=== PATIENT | female | born 1955 | race Caucasian/White ===

== ENCOUNTER 2024-02-27 15:20 | Emergency (ER) | payer OTHER, SELFPAY ==
[2024-02-27 15:28] VITALS: BP 161/103; BMI 37.8
[2024-02-27 15:55] LABS: % Basophils 0.5 % (0-2); % Eosinophils 0.8 % (0-6); % Immature Granulocytes 0.3 % (0-0.5); % Lymphocytes 17.5 % (20.5-51.1); % Monocytes 7.8 % (1.7-9.3); % Neutrophils 73.1 % (42.2-75.2); Absolute Eosinophils 0.1 10^3/uL (0-0.7); Absolute Lymphocytes 1.3 10^3/uL (1.2-3.4); Absolute Monocytes 0.6 10^3/uL (0.1-0.6); Absolute Neutrophils 5.4 10^3/uL (1.4-6.5); Mean Corp Hgb Conc. 34.1 g/dL (33.0-37.0); Mean Corpuscular Hgb 31.4 pg (27.0-31.0); Mean Corpuscular Volume 92.2 fL (81.0-99.0); Mean Platelet Volume 10.6 fL (7.4-10.4); Nucleated Red Blood Cells % 0 %; Platelet Count 250 10^3/uL (130-400); Red Blood Cell Count 4.77 10^6/uL (4.20-5.40); Red Cell Dist. Width 11.8 % (11.5-14.5); White Blood Cell Count 7.4 10^3/uL (4.8-10.8)
[2024-02-27 16:11] LABS: ALT (SGPT) 18 U/L (0-35); AST (SGOT) 26 U/L (14-36); Albumin 4.7 g/dl (3.5-5.0); Alkaline Phosphatase 90 U/L (38-126); Blood Urea Nitrogen 14 mg/dl (7-17); Calcium 9.6 mg/dl (8.4-10.2); Carbon Dioxide 24 mmol/L (22-30); Chloride 107 mmol/L (98-107); Estimated Creatinine Clearance 70 ml/min; Glucose 107 mg/dl (70-99); Potassium 4.2 mmol/L (3.5-5.1); Sodium 140 mmol/L (135-145); Total Bilirubin 0.7 mg/dl (0.2-1.3); Total Protein 7.2 g/dl (6.3-8.2); eGFR > 60.00
[2024-02-27 16:13] LABS: Troponin I < 0.012 ng/ml
[2024-02-27 19:17] VITALS: BP 134/97
[2024-02-27 19:36] LABS: COVID-19 Antigen Negative (Negative)
[2024-02-27 20:09] VITALS: BP 131/75
[2024-02-27 20:48] LABS: D-Dimer 2.19 ug/mlFEU (0.00-0.50)
--- NOTE | 2024-02-27 22:09 | ED.GENMED ---
History of Present Illness
General
Chief Complaint: Dizziness
Source: patient and spouse
Exam Limitations: none
Time Seen by Provider: 02/27/24 19:25
Nursing documentation reviewed up to this point in time: agreed with
History of Present Illness
History of Present Illness:
68 yo female with history of fibromyalgia, chronic fatigue and severe anxiety presents for shortness of breath. States for the past 3 days she has been lightheaded off and on and short of breath that comes and goes. She states she is short of
breath even at rest sometimes. She admits that she has various aches and pains all over her body due to her fibromyalgia but a new pain was in her right lower leg last night all night long.
Denies fever or chills. Denies abdominal pain.
She went to urgent care earlier today had a negative chest x-ray, also had an unremarkable EKG, the urgent care report has been scanned into this chart.
It was reported that 1 time her pulse ox was 93% so they sent her here for evaluation
Past History
Past History
ED Past Medical History: Fibromyalgia, Hypothyroidism, Psychiatric (depression/anxiety) and Other (chronic fatigue)
ED Past Surgical History: Appendectomy, Cholecystectomy, and Orthopedic
Social History
Tobacco: Non-smoker
Alcohol: None
Personal:
Living: with family
Review of Systems
Review of Systems
Allergies reviewed?: Yes
All Other Systems: ROS reviewed and negative except as documented in HPI and ROS
Constitutional: Denies fever
Respiratory: Reports trouble breathing; Denies cough or hemoptysis
Cardiac: Denies chest pain, diaphoresis, palpitations or syncope
ABD/GI: Denies abdominal pain or nausea
Musculoskeletal: Reports no symptoms
Skin: Reports no symptoms
Neurological: Reports other (intermittent lightheadedness); Denies dizzy, headache, weakness or numbness
Phy Exam
Physical Exam
Physical Exam:
GENERAL: No acute distress. A&Ox3.
CONSTITUTIONAL: Afebrile.
EYES: Clear, conjunctivae normal
ENMT: moist mucus membranes, Pharynx nl
RESPIRATORY: Regular respirations, nonlabored, lungs clear. Pulse ox 98% RA
CARDIOVASCULAR: Regular rate and rhythm, no murmurs, no rubs.
GI: Soft, nontender, normal BS
MUSCULOSKELETAL: Moves with ease. Well perfused. No edema
SKIN: Warm, dry, pink
PSYCH: Anxious mood and affect. Well kept, interactive and appropriate
NEUROLOGIC: Awake, alert and oriented. No focal neurological deficits
Course
Orders/Labs/Results
Orders:
Orders
02/27/24 15:32
Electrocardiogram (*1) Urgent
Reason for Study: Chest Pain
EKG- Treatment ONCE
02/27/24 15:45
Complete Blood Count/With Diff Urgent
Comprehensive Metabolic Panel Urgent
Troponin I Urgent
02/27/24 19:16
COVID-19 Antigen Urgent
Source: Nasal Swab
02/27/24 19:58
US Periph Venous LOWER Ext RT Urgent
Comment:
Reason For Exam: R calf pain, SOB
02/27/24 20:10
D-Dimer Urgent
Protime/PTT Urgent
Comment: ADD ON
02/27/24 21:22
CT Chest Pe Study Urgent
Comment:
Reason For Exam: SOB elevated dimer
02/27/24 22:36
Add On- LAB Urgent
Tests Added?: PT/PTT
02/27/24 23:11
Apixaban [Eliquis] 10 mg PO NOW STA
Abnormal Lab Results
02/27/24 02/27/24
15:45 20:10
MCH 31.4 H pg
(27.0-31.0)
MPV 10.6 H fL
(7.4-10.4)
Lymphocytes % 17.5 L %
(20.5-51.1)
D-Dimer 2.19 H ug/mlFEU
(0.00-0.50)
Glucose 107 H mg/dl
(70-99)
02/27/24 15:45
02/27/24 15:45
Vital Signs
Initial and Last Documented VS:
Initial Vital Signs
Temp Pulse Resp BP Pulse Ox
98.9 F 94 16 161/103 96
02/27/24 15:28 02/27/24 15:28 02/27/24 15:28 02/27/24 15:28 02/27/24 15:28
Last Documented Vital Signs
Temp Pulse Resp BP Pulse Ox
98.9 F 85 16 107/91 98
02/27/24 15:28 02/27/24 23:31 02/27/24 15:28 02/27/24 23:31 02/27/24 23:31
MDM/Problems Addressed
Differential Diagnosis Includes:
PE, CHF, CA, PNA
MDM/Problems Addressed:
68 yo female with history of fibromyalgia, chronic fatigue and severe anxiety presents for shortness of breath. States for the past 3 days she has been lightheaded off and on and short of breath that comes and goes. She states she is short of
breath even at rest sometimes. She admits that she has various aches and pains all over her body due to her fibromyalgia but a new pain was in her right lower leg last night all night long.
Denies fever or chills. Denies abdominal pain.
She went to urgent care earlier today had a negative chest x-ray, also had an unremarkable EKG (the urgent care report has been scanned into this chart).
It was reported that 1 time her pulse ox was 93% so they sent her here for evaluation
CBC, CMP with no clinically significant abnormality
Ultrasound right lower extremity negative for DVT
8:45 PM
D-dimer elevated at 2.19
10:25 PM:
PE study:
X-ray radiologist report: Minor pulmonary embolism burden. Small nonocclusive pulmonary embolism in the right lower lobe lateral proximal segmental pulmonary artery. In the left lower lobe, there is subtle respiratory motion degradation, though
suggestion of possible filling defect in the posterior basal proximal segmental pulmonary artery.
No definite evidence to suggest significant right ventricular heart strain.
Mild atelectasis. No pneumonia.
10:40 PM:
There has been no hypoxemia. Pulse ox maintained at 97% while patient ambulated the entire length of the hallway up and down, no lightheadedness or dizziness
Pt is comfortable going home on Eliquis. She will see her PCP in 2 days if available, otherwise, next week
Case discussed with Dr. Bender who agrees pt can be discharged home on anticoagulation.
Pt ambulated out with normal gait at discharge
*Critical Care Note
Total Time (30-74mins, 75-104mins- exclusive of procedures): Not Applicable
ED Attending Note
-
Portions of this chart may have been created with voice recognition software.� Occasional wrong word or��sound alike� substitutions may have occurred due to the inherent limitations of voice recognition software.
Discharge Plan
Departure
Patient Disposition: Home (Routine Discharge)
Patient with high blood pressure during this ER visit?: No
Condition: Good
Discharge Problem:
Pulmonary embolism
Instructions: Pulmonary embolism (blood clot in the lung)
Prescriptions:
New
apixaban 5 mg tablet
5 mg PO BID Qty: 70 0RF
Rx Instructions:
Si mg BID for 7 days then 5 mg BID until further instructed
No Action
primidone 50 mg tablet
100 mg PO HS
lorazepam 0.5 mg tablet
0.5 mg PO QIDPRN PRN (Reason: anxiety)
Patient Comments:
02/27/2024: last filled 02/04/24, 120 tabs for 30 days from [facility]
furosemide 20 mg tablet
20 mg PO MOWEFR
pregabalin 50 mg capsule
150 mg PO HS
Patient Comments:
02/27/2024: last filled 02/19/24, 90 tabs for 30 days from [facility]
melatonin 10 mg Tablet
10 mg PO HS
Trintellix 20 mg tablet
20 mg PO DAILY
Referrals:
Salas Lawson MD [Family Provider] - Follow up in 5-7 days
Activity Restrictions/Additional Instructions:
As we discussed, you have a small clot in the right lower lung. I sent a prescription to your pharmacy for the blood thinner Eliquis (apixaban). If your insurance does not cover it, use the $10 co-pay coupon I gave you
Call your primary doctor's office tomorrow make an appointment for next week. Take copy of all reports with you.
Please discuss the fact that you are on primidone and Eliquis as you may need closer monitoring.
Return here immediately for worsening shortness of breath, chest pain, feeling sicker in any way.
Interventions
Interventions:
*Risk Screen - Suicide Last Done: 02/27/24 15:28
*General Assessment Last Done: 02/27/24 23:31
*Neglect/Abuse Screening Last Done: 02/27/24 15:28
ED- Fall Risk Assessment Last Done: 02/27/24 15:28
*Nursing Disposition Last Done: 02/27/24 23:31
ED- Neurological Assessment Last Done: 02/27/24 19:20
ED- Cardiac Assessment Last Done: 02/27/24 23:33
ED Swallowing Screen Last Done: 02/27/24 19:20
Discharge Date and Time
Discharge Date/Time: 02/27/24 23:34
Print Language: [id number]
[2024-02-27 22:20] VITALS: BP 95/72
[2024-02-27 22:44] VITALS: BP 107/91
[2024-02-27 22:46] LABS: INR 0.98
[2024-02-27 22:47] LABS: APTT 30.5 Sec (23.4-35.0)
[2024-02-27] MEDS: ELIQUIS 10 MG PO (23:26)
[2024-02-27 23:31] VITALS: BP 107/91
== END 2024-02-27 23:34 | disposition home or self-care (01) ==
LOC: EMR 15:20
PROVIDERS: Registered Nurse; EMERGENCY PHYSICIAN Emergency Medicine; FAMILY PHYSICIAN Internal Medicine Geriatric Medicine
DX: I26.99 Other pulmonary embolism without acute cor pulmonale (principal); R42 Dizziness and giddiness; M79.604 Pain in right leg; R06.02 Shortness of breath; Z11.52 Encounter for screening for COVID-19; M79.7 Fibromyalgia; F41.9 Anxiety disorder, unspecified; R53.83 Other fatigue; E03.9 Hypothyroidism, unspecified; F32.A Depression, unspecified; Z90.49 Acquired absence of other specified parts of digestive tract; Z88.0 Allergy status to penicillin; Z88.8 Allergy status to other drugs, medicaments and biological substances; Z91.040 Latex allergy status
CPT/HCPCS: 99285; 71275; 80053; 84484; 85025; 85379; 85610; 85730; 87811; 93005; 93971; Q9967

== ENCOUNTER → 2024-05-12 11:42 | Outpatient (REF) | payer OTHER, SELFPAY | LOC: HWRAD 11:42 | PROVIDERS: ATTENDING PHYSICIAN Internal Medicine Hematology & Oncology; FAMILY PHYSICIAN Internal Medicine Geriatric Medicine | DX: I26.99 Other pulmonary embolism without acute cor pulmonale (principal) | CPT/HCPCS: 71275; Q9967 ==